=== PATIENT | female | born 1970 | race Caucasian/White ===

== ENCOUNTER 2018-04-28 13:04 | Emergency (ER) | payer MEDICARE, MEDICAID ==
[~2018-04-28] VITALS: Ht 152.4 cm; Wt 92.0 kg
[~2018-04-28 13:04] MED LIST: MECL-111 PO; ONDA8TAB9 PO; RIZA10TA24 PO
[2018-04-28] MEDS ORDERED: ketorolac tromethamine 15mg/ml inj. IM ONE (15:10)
[2018-04-28 15:50] VITALS: BP 123/72
== END 2018-04-28 15:52 | disposition home or self-care (01) ==
LOC: ER 13:04
DX: G43.909 Migraine, unspecified, not intractable, without status migrainosus (principal); I10 Essential (primary) hypertension; G89.29 Other chronic pain; Z86.711 Personal history of pulmonary embolism; Z90.49 Acquired absence of other specified parts of digestive tract; Z98.890 Other specified postprocedural states; Z88.2 Allergy status to sulfonamides; Z79.01 Long term (current) use of anticoagulants; Z91.018 Allergy to other foods
CPT/HCPCS: 70450; 96372; 99284; J1885

== ENCOUNTER 2018-11-01 03:27 | Emergency (ER) | payer MEDICARE, OTHER ==
[~2018-11-01] VITALS: Ht 180.3 cm; Wt 94.0 kg
[2018-11-01] MEDS ORDERED: normal saline 1000ml 1,000 ML IV ONE (03:40)
[2018-11-01 03:48] LABS: BASOPHILS # (AUTO) 0.1 X10'3 (0-0.2); BASOPHILS % (AUTO) 1.5 % (0-1); EOSINOPHILS # (AUTO) 0.2 X10'3 (0-0.9); EOSINOPHILS % (AUTO) 2.7 % (0-6); LYMPHOCYTES # (AUTO) 1.7 X10'3 (1.1-4.8); LYMPHOCYTES % (AUTO) 22.8 % (21-51); MEAN CORPUSCULAR HEMOGLOBIN 32.7 PG (27.0-31.0); MEAN CORPUSCULAR HGB CONC 34.2 g/dL (33.0-36.5); MEAN CORPUSCULAR VOLUME 95.7 FL (78-98); MEAN PLATELET VOLUME 8.9 FL (7.4-10.4); MONOCYTES # (AUTO) 0.5 X10'3 (0-0.9); MONOCYTES % (AUTO) 6.7 % (2-12); NEUTROPHILS % (AUTO) 66.3 % (42-75); PLATELET COUNT 373 X10'3 (140-440); RED BLOOD COUNT 4.29 X10'6 (4.20-5.60); RED CELL DISTRIBUTION WIDTH 14.8 % (11.5-14.5); WHITE BLOOD COUNT 7.6 X10'3 (4.5-11.0)
[2018-11-01] MEDS ORDERED: proCHLORperazine 10 MG/2 ml inj IV ONE (03:50)
[2018-11-01] MEDS ORDERED: diazepam 5mg tablet PO ONE (03:50)
[2018-11-01] MEDS ORDERED: diphenhydrAMINE 50 mg/ml inj IV ONE (03:50)
[2018-11-01 03:55] LABS: CLARITY,URINE SLIGHTLY CLOUDY (Clear); COLOR,URINE YELLOW (Yellow); GLUCOSE, URINE NEGATIVE (Neg); KETONES,URINE >=80 mg/dl (Neg); LEUKOCYTE ESTERASE ,URINE NEGATIVE (Neg); NITRITES, URINE NEGATIVE (Neg); OCCULT BLOOD,URINE NEGATIVE (Neg); PH,URINE 5.5 (4.8-8.0); PROTEIN,URINE NEGATIVE (Neg); URINE HCG NEGATIVE (NEG); UROBILINOGEN,URINE 0.2 E.U/dL (0.2-1.0)
[2018-11-01 03:57] LABS: UA COLLECTION TYPE CLN CATCH MIDSTREAM
[2018-11-01 03:58] LABS: INR 2.5 INR
[2018-11-01 04:01] LABS: ALANINE AMINOTRANSFERASE 22 U/L (12-78); ALBUMIN/GLOBULIN RATIO 1.1 (1.1-1.5); ALKALINE PHOSPHATASE 75 IU/L (46-116); ANION GAP 10 (8-16); ASPARTATE AMINO TRANSFERASE 22 U/L (10-37); BILIRUBIN,TOTAL 0.8 MG/DL (0.1-1.0); BLOOD UREA NITROGEN 7 MG/DL (7-18); BUN/CREATININE RATIO 8.8 (6.6-38.0); CALCIUM 9.3 MG/DL (8.5-10.1); CHLORIDE 101 MMOL/L (99-107); GLUCOSE 91 MG/DL (70-104); SODIUM 138 MMOL/L (135-145); TOTAL CARBON DIOXIDE 26.6 MMOL/L (24-32); TOTAL PROTEIN 7.5 G/DL (6.4-8.2); eGFR 77 ML/MIN
[2018-11-01 04:02] LABS: BACTERIA,URINE 1+ /HPF (Neg); MUCUS STRANDS MANY /LPF (Neg); RBC,URINE 0-2 /HPF (0-2); SQUAMOUS EPITHELIAL CELL,UR MANY /LPF (FEW); WBC,URINE 0-4 /HPF (0-4)
[2018-11-01 04:03] LABS: POTASSIUM 2.8 MMOL/L (3.5-5.1)
[2018-11-01] MEDS ORDERED: morphine 4 MG/ML inj SYRINge IV PRN (04:30)
[2018-11-01] MEDS ORDERED: ondansetron/PF 4mg/2ml inj IV ONE (04:30)
[2018-11-01] MEDS ORDERED: potassium Cl 20 mEq SR tablet PO ONE (04:30)
[2018-11-01 06:15] VITALS: BP 112/77
--- NOTE | 2018-11-01 06:38 | NUR ---
[facility] CALLED FOR PATIENT TRANSPORTATION. DEPARTED WITH DC INSTRUCTIONS, AMBULATORY, IN GOOD CONDITION.
== END 2018-11-01 06:39 | disposition home or self-care (01) ==
LOC: ER 03:27
DX: G43.909 Migraine, unspecified, not intractable, without status migrainosus (principal); I10 Essential (primary) hypertension; G89.29 Other chronic pain; M54.9 Dorsalgia, unspecified; Z90.49 Acquired absence of other specified parts of digestive tract; Z88.2 Allergy status to sulfonamides; Z88.8 Allergy status to other drugs, medicaments and biological substances; Z91.018 Allergy to other foods
CPT/HCPCS: 36415; 70450; 80053; 81001; 81025; 85025; 85610; 96374; 96375; 99284; J0780; J1200; J2270; J2405; J7030; 99283

== ENCOUNTER 2022-01-02 20:32 | Emergency (ER) | payer MEDICARE, SELFPAY ==
[~2022-01-02] VITALS: Ht 180.3 cm; Wt 72.0 kg
[~2022-01-02 20:32] MED LIST changes: +BACL10TA2 PO; +COU3T PO; +ENOX80SY7 SQ; -MECL-111 PO; +MECL-159 PO; -ONDA8TAB9 PO; +PER10325T PO; +PROP10TA10 PO
[2022-01-02] MEDS ORDERED: morphine 4 MG/ML inj SYRINge IM ONE (22:00)
[2022-01-02] MEDS ORDERED: HYDROcodone/acetaminophen 10/325mg tab PO ONE (22:00)
[2022-01-02] MEDS ORDERED: NORepinephrine inj. 8 MG in dextrose 5%-water 242 ML IV SCH (23:50)
[2022-01-02 23:53] VITALS: BP 113/83
[2022-01-02] MEDS ORDERED: NOREPINEPHRINE BITARTRATE/D5W 250 ML IV SCH (23:55)
[2022-01-03] MEDS ORDERED: hydrocortisone sod succ/PF 250mg/2ml inj. IV SCH
[2022-01-03] MEDS ORDERED: hydrocortisone sod succ/PF 100mg/2ml inj. IV SCH
== END 2022-01-02 23:57 | disposition home or self-care (01) ==
LOC: ER 20:32
DX: S52.122A Displaced fracture of head of left radius, initial encounter for closed fracture (principal); S72.002A Fracture of unspecified part of neck of left femur, initial encounter for closed fracture; R55 Syncope and collapse; G43.909 Migraine, unspecified, not intractable, without status migrainosus; I10 Essential (primary) hypertension; G89.29 Other chronic pain; M54.9 Dorsalgia, unspecified; Z88.2 Allergy status to sulfonamides; Z79.899 Other long term (current) drug therapy; Z88.8 Allergy status to other drugs, medicaments and biological substances; W01.0XXA Fall on same level from slipping, tripping and stumbling without subsequent striking against object, initial encounter; Y93.89 Activity, other specified; Y92.89 Other specified places as the place of occurrence of the external cause; Y99.8 Other external cause status
CPT/HCPCS: 29105; 71045; 73080; 73090; 73502; 96372; 99284; J2270

== ENCOUNTER 2023-12-16 12:34 | Outpatient (CLI) | payer MEDICARE, MEDICAID ==
[~2023-12-16 12:34] MED LIST changes: -MECL-159 PO; +MECL-302 PO; +RIZA-7 PO; -RIZA10TA24 PO
== END 2023-12-16 23:59 | disposition home or self-care (01) ==
LOC: RAD 12:34
PROVIDERS: ATTEND Student in an Organized Health Care Education/Training Program
DX: M25.551 Pain in right hip (principal)
CPT/HCPCS: 73522

== ENCOUNTER 2024-03-29 15:21 | Emergency (ER) | payer MEDICARE, MEDICAID ==
[~2024-03-29] VITALS: Ht 177.8 cm; Wt 79.5 kg
[2024-03-29 15:22] VITALS: TEMP 98.4
[2024-03-29 15:54] LABS: BASOPHILS % (AUTO) 0.6 % (0-1); EOSINOPHILS # (AUTO) 0.4 X10'3 (0-0.9); EOSINOPHILS % (AUTO) 4.6 % (0-6); HEMATOCRIT 42.6 % (35.0-45.0); HEMOGLOBIN 14.2 g/dl (12.0-16.0); LYMPHOCYTES # (AUTO) 2.9 X10'3 (1.1-4.8); LYMPHOCYTES % (AUTO) 35.2 % (21-51); MEAN CORPUSCULAR HEMOGLOBIN 31.1 PG (27.0-31.0); MEAN CORPUSCULAR HGB CONC 33.4 g/dL (33.0-36.5); MEAN CORPUSCULAR VOLUME 93.2 FL (78-98); MEAN PLATELET VOLUME 8.7 FL (7.4-10.4); MONOCYTES # (AUTO) 0.6 X10'3 (0-0.9); MONOCYTES % (AUTO) 7.2 % (2-12); NEUTROPHILS # (AUTO) 4.3 X10'3 (1.8-7.7); NEUTROPHILS % (AUTO) 52.4 % (42-75); PLATELET COUNT 332 X10'3 (140-440); RED BLOOD COUNT 4.56 X10'6 (4.20-5.60); RED CELL DISTRIBUTION WIDTH 13.4 % (11.5-14.5); WHITE BLOOD COUNT 8.2 X10'3 (4.5-11.0)
[2024-03-29 16:01] LABS: APTT 46 SECONDS (22-32); INR 3.5 INR; PROTHROMBIN TIME 33.4 SECONDS (9.0-12.0)
[2024-03-29 16:05] LABS: ALANINE AMINOTRANSFERASE 26 U/L (12-78); ALBUMIN 4.1 G/DL (3.4-5.0); ALBUMIN/GLOBULIN RATIO 1.1 (1.1-1.5); ALKALINE PHOSPHATASE 83 IU/L (46-116); ANION GAP 9 (8-16); ASPARTATE AMINO TRANSFERASE 29 U/L (10-37); BILIRUBIN,TOTAL 0.5 MG/DL (0.1-1.0); BLOOD UREA NITROGEN 4 MG/DL (7-18); BUN/CREATININE RATIO 5.1 (10.0-20.0); CALCIUM 9.1 MG/DL (8.5-10.1); CHLORIDE 104 MMOL/L (99-107); CREATININE 0.79 MG/DL (0.40-0.90); GLUCOSE 119 MG/DL (70-104); POTASSIUM 3.2 MMOL/L (3.5-5.1); SODIUM 139 MMOL/L (135-145); TOTAL CARBON DIOXIDE 25.7 MMOL/L (24-32); eCRCL 89 ML/MIN; eGFR 76 ML/MIN
[2024-03-29 16:45] VITALS: BP 130/86; PULSE 80; RESP 16; O2SAT 97
== END 2024-03-29 16:58 | disposition home or self-care (01) ==
LOC: ER 15:22
DX: M25.551 Pain in right hip (principal); G43.909 Migraine, unspecified, not intractable, without status migrainosus; I10 Essential (primary) hypertension; G89.29 Other chronic pain; M54.9 Dorsalgia, unspecified; Z90.49 Acquired absence of other specified parts of digestive tract; Z98.890 Other specified postprocedural states; Z88.2 Allergy status to sulfonamides; Z86.711 Personal history of pulmonary embolism; Z79.899 Other long term (current) drug therapy
CPT/HCPCS: 36415; 73502; 80053; 85025; 85610; 85730; 93971; 99284

== ENCOUNTER 2024-06-21 08:48 | Emergency (ER) | payer MEDICARE, MEDICAID ==
[~2024-06-21] VITALS: Ht 177.8 cm; Wt 80.0 kg
[2024-06-21 08:50] VITALS: TEMP 98.1
[2024-06-21] MEDS: morphine 2 MG/ML inj. syringe IV ONE (10:40)
[2024-06-21 11:07] LABS: BASOPHILS # (AUTO) 0.1 X10'3 (0-0.2); BASOPHILS % (AUTO) 0.7 % (0-1); EOSINOPHILS # (AUTO) 0.2 X10'3 (0-0.9); EOSINOPHILS % (AUTO) 2.8 % (0-6); HEMATOCRIT 43.6 % (35.0-45.0); HEMOGLOBIN 14.4 g/dl (12.0-16.0); LYMPHOCYTES # (AUTO) 1.8 X10'3 (1.1-4.8); LYMPHOCYTES % (AUTO) 21.7 % (21-51); MEAN CORPUSCULAR HEMOGLOBIN 31.5 PG (27.0-31.0); MEAN CORPUSCULAR HGB CONC 33.2 g/dL (33.0-36.5); MEAN CORPUSCULAR VOLUME 95.1 FL (78-98); MEAN PLATELET VOLUME 8.8 FL (7.4-10.4); MONOCYTES # (AUTO) 0.5 X10'3 (0-0.9); MONOCYTES % (AUTO) 5.6 % (2-12); NEUTROPHILS # (AUTO) 5.6 X10'3 (1.8-7.7); NEUTROPHILS % (AUTO) 69.2 % (42-75); PLATELET COUNT 365 X10'3 (140-440); RED BLOOD COUNT 4.58 X10'6 (4.20-5.60); RED CELL DISTRIBUTION WIDTH 13.7 % (11.5-14.5); WHITE BLOOD COUNT 8.2 X10'3 (4.5-11.0)
[2024-06-21 11:08] LABS: URINE AMPHETAMINE SCREEN NEGATIVE (Neg); URINE BARBITUATE SCREEN NEGATIVE (Neg); URINE BENZODIAZEPINES SCREEN NEGATIVE (Neg); URINE CANNABINOID SCREEN NEGATIVE (Neg); URINE COCAINE SCREEN NEGATIVE (Neg); URINE METHADONE SCREEN NEGATIVE (Neg); URINE OPIATE SCREEN POSITIVE (Neg); URINE PHENCYCLIDINE SCREEN NEGATIVE (Neg)
[2024-06-21 11:15] LABS: ANION GAP 7 (8-16); BLOOD UREA NITROGEN 6 MG/DL (7-18); BUN/CREATININE RATIO 7.5 (10.0-20.0); CHLORIDE 104 MMOL/L (99-107); GLUCOSE 91 MG/DL (70-104); POTASSIUM 4.3 MMOL/L (3.5-5.1); SODIUM 141 MMOL/L (135-145); TOTAL CARBON DIOXIDE 30.2 MMOL/L (24-32)
[2024-06-21 11:16] LABS: ALBUMIN 4.4 G/DL (3.4-5.0); CALCIUM 9.2 MG/DL (8.5-10.1); eCRCL 87 ML/MIN; eGFR 75 ML/MIN
[2024-06-21 11:20] LABS: APTT 38 SECONDS (22-32); INR 2.3 INR; PROTHROMBIN TIME 22.9 SECONDS (9.0-12.0)
[2024-06-21 11:22] LABS: ETHANOL < 10 MG/DL (<10)
[2024-06-21] MEDS: HYDROmorphone inj. 0.5 MG/0.5 ML DISP.SYRIN IV ONE (13:47)
[2024-06-21] MEDS ORDERED: NAPR-56 PO (14:18)
[2024-06-21] MEDS ORDERED: ketorolac trometh 15mg/ml vial 15 MG/ML ML IV ONE (14:20)
[2024-06-21 14:29] VITALS: BP 124/82; PULSE 77; RESP 16; O2SAT 96
== END 2024-06-21 14:30 | disposition home or self-care (01) ==
LOC: ER 08:48
DX: T14.8XXA Other injury of unspecified body region, initial encounter (principal); R07.89 Other chest pain; I10 Essential (primary) hypertension; G89.29 Other chronic pain; Z88.2 Allergy status to sulfonamides; Z79.1 Long term (current) use of non-steroidal anti-inflammatories (NSAID); Z79.899 Other long term (current) drug therapy; Z86.711 Personal history of pulmonary embolism; Z87.19 Personal history of other diseases of the digestive system; Z90.49 Acquired absence of other specified parts of digestive tract; Z90.710 Acquired absence of both cervix and uterus; Y08.89XA Assault by other specified means, initial encounter; Y93.89 Activity, other specified; Y92.89 Other specified places as the place of occurrence of the external cause; Y99.8 Other external cause status
CPT/HCPCS: 36415; 71045; 72040; 73090; 73100; 80048; 80305; 85025; 85610; 85730; 93005; 96374; 96375; 99285; G0480; J1171; J2270; 80320

== ENCOUNTER 2024-06-28 17:28 | Emergency (ER) | payer MEDICARE, MEDICAID ==
[~2024-06-28] VITALS: Ht 177.8 cm; Wt 74.0 kg
[~2024-06-28 17:28] MED LIST changes: +NAPR-56 PO
[2024-06-28] MEDS ORDERED: LIDO700A32 TOP (17:41)
[2024-06-28 17:58] VITALS: BP 140/78; PULSE 90; RESP 16; TEMP 97.8; O2SAT 97
[2024-06-29] MEDS ORDERED: LIDOcaine 5% patch TP SCH (08:00)
== END 2024-06-28 18:00 | disposition home or self-care (01) ==
LOC: ER 17:29
DX: R07.89 Other chest pain (principal); G89.29 Other chronic pain; I10 Essential (primary) hypertension; Z88.2 Allergy status to sulfonamides; Z91.018 Allergy to other foods; Z79.1 Long term (current) use of non-steroidal anti-inflammatories (NSAID); Z79.899 Other long term (current) drug therapy; Z90.710 Acquired absence of both cervix and uterus; Z90.49 Acquired absence of other specified parts of digestive tract; Z87.19 Personal history of other diseases of the digestive system; Z79.01 Long term (current) use of anticoagulants; Z86.711 Personal history of pulmonary embolism
CPT/HCPCS: 99283

== ENCOUNTER 2025-03-25 10:13 | Emergency (ER) | payer MEDICARE, MEDICAID ==
[~2025-03-25] VITALS: Ht 180.3 cm; Wt 86.7 kg
[~2025-03-25 10:13] MED LIST changes: +LIDO-52 TOP; -NAPR-56 PO
[2025-03-25 10:23] VITALS: TEMP 98.6
--- NOTE | 2025-03-25 10:42 | Physician Documentation ---
History of Present Illness ~ Chief Complaint: Arm Pain Stated Complaint: RIGHT ARM PAIN Time Seen by MD: 11:30 Primary Medical Doctor: [facility], [place] [employer] [facility] HPI 54-year-old female with a chronic history of DVT presents with right arm pain burning with numbness. She denies any injury. Since that she takes warfarin to prevent clots. States it at her last checkup she was below therapeutic index. Denies shortness of breath Day of Onset: Mar 25, 2025 Tetanus within 5 years: Yes Medication Reconciliation Allergies: Coded Allergies: Sulfa (Sulfonamide Antibiotics) (Verified Allergy, Unknown, 03/25/25) avocado (Verified Allergy, Unknown, 03/25/25) warfarin (Verified Adverse Reaction, Severe, "THINS MY BLOOD BAD", 04/28/18) Scheduled Baclofen (Baclofen), PO TID, (Reported) Duloxetine HCl (Duloxetine HCl), 1 CAP PO DAILY, (Reported) Warfarin Sodium* (Coumadin*), 1 TAB PO DAILY, (Reported) Scheduled PRN Rizatriptan Benzoate (Maxalt Pony Rougher), 10 MG PO BID PRN for headache, (Reported) Discontinued Medications Enoxaparin Sodium (Lovenox), 80 MG SQ BID, (Reported) Discontinued Reason: patient no longer taking Lidocaine (Lidoderm), 1 PATCH TOP DAILY Discontinued Reason: patient no longer taking Lidocaine (Lidoderm), 1 PATCH TOP DAILY Discontinued Reason: patient no longer taking Meclizine HCl (Meclizine HCl), 1 TAB PO Q8H Discontinued Reason: patient no longer taking Oxycodone Hcl/Acetaminophen 10/325 MG* (Percocet 10/325 MG*), 1 TAB PO Q6H PRN for moderate to severe pain, (Reported) Discontinued Reason: patient no longer taking Propranolol Hcl* (Inderal*), 1 TAB PO DAILY, (Reported) Discontinued Reason: patient no longer taking Past Medical History Past Medical History: Headache, Migraine, Hypertension, Valve Insuffciency, Pulmonary Embolism, Hemorrhoids, Chronic Pain, Chronic Back Pain Past Surgical History: appendectomy, cholecystectomy, hysterectomy, orthopedic surgeries, other Other Past Surgical History: laminectomy Other Past Family History: NONCONTRIBUTORY Alcohol Use: None Drug Use: none Lives with: Spouse Lives In: Home Physical Exam Vital Signs: Temperature: 98.6, Source: Temporal, Heart Rate: 89, Respiratory Rate: 18, BP: 169/116, Pulse Oximetry: 99, Weight: 86.650 Oxygen Flow Rate: 0 Physical Exam General: Alert, no apparent distress. HEENT: PERRL, EOMI, no injection, moist mucous membranes. Neck: Full range of motion. Extremities: Normal range of motion, no deformity. Neurologic: Oriented x4. nuero intact Psychiatric: Normal mood and affect. Skin: Normal color, warm and dry. No edema, no ecchymosis. Progress Results/Orders Results/Orders Vital Signs 03/25/25 03/25/25 10:23 11:52 Temp 98.6 Pulse 89 76 Resp 18 18 B/P (MAP) 169/116 126/97 (107) Pulse Ox 99 96 O2 Flow Rate 0 Laboratory Tests Test 03/25/25 10:51 White Blood Count 6.0 Red Blood Count 4.39 Hemoglobin 13.2 Hematocrit 39.8 Mean Corpuscular Volume 90.6 Mean Corpuscular Hemoglobin 30.0 Mean Corpuscular Hemoglobin Concent 33.1 Red Cell Distribution Width 13.8 Platelet Count 320 Mean Platelet Volume 8.4 Neutrophils (%) (Auto) 52.3 Lymphocytes (%) (Auto) 34.0 Monocytes (%) (Auto) 6.6 Eosinophils (%) (Auto) 6.0 Basophils (%) (Auto) 1.1 H Neutrophils # (Auto) 3.2 Lymphocytes # (Auto) 2.1 Monocytes # (Auto) 0.4 Eosinophils # (Auto) 0.4 Basophils # (Auto) 0.1 CBC Comment Prothrombin Time 35.3 H INR International Normalized Ratio 3.9 Activated Partial Thromboplast Time 43 H D-Dimer < 0.19 D-Dimer Comment Coagulation Comments Sodium Level 140 Potassium Level 3.8 Chloride Level 104 Carbon Dioxide Level 28.7 Anion Gap 7 L Blood Urea Nitrogen 9 Creatinine 0.65 Estimated GFR/1.73 m2 > 90 BUN/Creatinine Ratio 13.8 Glucose Level 92 Calcium Level 8.9 Albumin 3.9 Chemistry Comments Medical Decision Making Findings This patient has vascular ultrasound came back negative for DVT which was reassuring. Patient has maintain that she has no chest pain or shortness for breath throughout. She also acknowledges having a long history of neck injuries which is likely the culprit of her left arm pain.. Discussed this with the patient and she seems reassuring as well. She meets criteria at this time for outpatient therapy and further evaluation. Departure Disposition: HOME / SELF CARE / HOMELESS Impression: Primary Impression: Neck pain Condition: Stable Discharge Instructions: Sprain, [id number], Muscle Strain, [id number] Referrals: NO PRIMARY CARE PROVIDER (PCP) Signature Scribe Signature: g Attestation: Scribed for Tremayne Beverly [employer] Crew Supervisor by Tremayne Gonzalez NP . 03/25/25 11:53 TREMAYNE BEVERLY NP Mar 25, 2025 10:42
[2025-03-25 10:59] LABS: MEAN PLATELET VOLUME 8.4 FL (7.4-10.4); RED CELL DISTRIBUTION WIDTH 13.8 % (11.5-14.5)
--- NOTE | 2025-03-25 11:10 | RADIOLOGY REPORT ---
CHEST RADIOGRAPH Indication: Stroke Alert Technique: Single frontal view of the chest was obtained Comparison: DI CHEST,SINGLE VIEW on DOS: 06/21/24, CHEST,SINGLE VIEW on DOS: 01/02/22 FINDINGS: Lines and Tubes: None Lungs: No focal consolidation. Pleura: No effusion. No pneumothorax. Cardiomediastinal contours: Unremarkable Bones: No acute osseous abnormality. IMPRESSION: No acute cardiopulmonary disease.
[2025-03-25 11:15] LABS: APTT 43 SECONDS (22-32); INR 3.9 INR
[2025-03-25 11:17] LABS: CREATININE 0.65 MG/DL (0.40-0.90); TOTAL CARBON DIOXIDE 28.7 MMOL/L (24-32); eCRCL 111 ML/MIN; eGFR > 90 ML/MIN
[2025-03-25] MEDS ORDERED: DULO30CA52 PO (11:52)
--- NOTE | 2025-03-25 11:53 | VASCULAR REPORT ---
RIGHT Upper Extremity Venous Duplex Clinical History: Pain Comparison: VASC VL VENOUS on DOS: 03/29/24 Technique: Duplex Doppler evaluation of the venous system of the RIGHT lower neck and upper extremity including color Doppler and spectral/pulsed waveform analysis was performed. Findings: The internal jugular vein demonstrates appropriate compressibility and waveform variability. The subclavian vein is patent on color Doppler evaluation without intraluminal thrombus and demonstra kelly waveform variability. The visualized portion of the brachiocephalic vein is patent on color Doppler evaluation without intr aluminal thrombus and demonstrates waveform variability. The axillary vein demonstrates appropriate compressibility and waveform variability. The brachial veins demonstrate appropriate compressibility and patency on Doppler evaluation. The basilic vein demonstrates appropriate compressibility and patency on Doppler evaluation. The cephalic vein demonstrates appropriate compressibility and patency on Doppler evaluation. Impression: No venous thrombus identified in the RIGHT upper extremity vessels evaluated above. Contralateral subclavian vein appears patent.
[2025-03-25 12:11] VITALS: BP 126/97; PULSE 76; RESP 18; O2SAT 97
== END 2025-03-25 12:09 | disposition home or self-care (01) ==
LOC: ER 10:13
DX: M54.2 Cervicalgia (principal); M79.601 Pain in right arm; G43.909 Migraine, unspecified, not intractable, without status migrainosus; I10 Essential (primary) hypertension; Z88.2 Allergy status to sulfonamides; Z79.01 Long term (current) use of anticoagulants; Z90.710 Acquired absence of both cervix and uterus; Z90.49 Acquired absence of other specified parts of digestive tract; Z86.711 Personal history of pulmonary embolism; Z88.8 Allergy status to other drugs, medicaments and biological substances; Z79.899 Other long term (current) drug therapy
CPT/HCPCS: 36415; 71045; 80048; 85025; 85379; 85610; 85730; 93971; 99284

== ENCOUNTER 2025-07-01 14:22 | Outpatient (CLI) | payer MEDICARE, MEDICAID ==
[~2025-07-01 14:22] MED LIST changes: +DULO30CA52 PO; -ENOX80SY7 SQ; -LIDO-52 TOP; -MECL-302 PO; -PER10325T PO; -PROP10TA10 PO
--- NOTE | 2025-07-02 04:19 | RADIOLOGY REPORT ---
CLINICAL INDICATION: PAIN IN RIGHT SHOULDER COMPARISON: None. TECHNIQUE: Multiplanar, multisequence MRI of the right shoulder was performed without contrast. Contrast: None FINDINGS: Glenohumeral joint: There is no fracture or bone marrow edema. Alignment is maintained. There is chondral thinning in the humeral head. No focal articular cartilage defect. There is no joint effusion or synovitis. Acromioclavicular joint: The acromioclavicular joint is narrowed capsular hypertrophy. There is a type 2 acromion. Rotator cuff and bursae: There is supraspinatus tendinosis and a partial- thickness bursal surface tear. There is infraspinatus tendinosis without tear. Subscapularis tendinosis is present without tear. Teres minor tendon is intact. There is no regional muscle atrophy. There is fluid distention of the subacromial subdeltoid bursa. Biceps tendon and glenoid labrum: The long head biceps tendon is located within the bicipital groove and intact. There is fluid noted in the long head biceps tendon sheath. The labrum is unremarkable. IMPRESSION: 1. Supraspinatus tendinosis and partial-thickness bursal surface tear in the right shoulder. 2. Infraspinatus and subscapularis tendinosis. 3. Subacromial subdeltoid bursitis. 4. Long head biceps tenosynovitis.
== END 2025-07-01 23:59 | disposition home or self-care (01) ==
LOC: MRI02 14:22
PROVIDERS: ATTEND Student in an Organized Health Care Education/Training Program
DX: M75.111 Incomplete rotator cuff tear or rupture of right shoulder, not specified as traumatic (principal); M25.511 Pain in right shoulder; M75.51 Bursitis of right shoulder; R20.0 Anesthesia of skin; M65.811 Other synovitis and tenosynovitis, right shoulder
CPT/HCPCS: 73221